=== PATIENT | male | born 1990 | race Caucasian/White ===

== ENCOUNTER 2020-02-22 20:52 | Emergency (ER) | payer OTHER ==
[~2020-02-22] VITALS: Ht 182.9 cm; Wt 109.0 kg
[2020-02-22] MEDS ORDERED: HYDROcodone/APAP 5/325MG 1 TAB TABLET PO ONE (22:00)
--- NOTE | 2020-02-22 22:33 | RAD ---
Exam: Left hand 3 views INDICATION: Left hand pain TECHNIQUE: Frontal, lateral and oblique views of the left hand Comparisons: None FINDINGS: Bone mineralization is normal. No acute or healed fractures. Mild soft tissue swelling at the level of the metacarpals. Joint spaces are well-maintained. IMPRESSION: Soft tissue swelling at the level of the metacarpals without underlying osseous abnormality identified. Electronically signed by: Miriam Posada MD (02/22/2020 10:30 PM) [id number]
--- NOTE | 2020-02-22 22:49 | PHYS DOC ---
Past Medical History Past Medical History: No Pertinent History Past Surgical History: No Surgical History Smoking Status: Never Smoker Alcohol Use: Occasionally General Adult EDM: Chief Complaint: UPPER EXTREMITY INJURY HPI: HPI: Patient is a 29 year old male presents to the emergency department with complaints of left hand pain over the second and third metacarpals after volleyball injury. Patient states that he fell while playing volleyball at approximately 1930 this evening. He reports swelling and pain to his left hand since the injury. He denies any numbness, tingling, or weakness. Patient reports that he drank 2 beers earlier this evening. He denies taking Tylenol or ibuprofen for relief of the pain prior to arrival. Currently rates pain 8 out of 10 on the pain scale, he denies any alleviating factors, the pain is worse with movement and palpation. Review of Systems: Review of Systems: Constitutional: Denies fever or chills. [] Musculoskeletal: Denies back pain; see HPI Integument: Denies rash, or bruising,; reports bruising to his left hand see HPI. [] Neurologic: Denies focal weakness or sensory changes. [] Psychiatric: Denies depression or anxiety. [] Heart Score: Risk Factors: Risk Factors: DM, Current or recent (<one month) smoker, HTN, HLP, family history of CAD, obesity. Risk Scores: Score 0 - 3: 2.5% MACE over next 6 weeks - Discharge Home Score 4 - 6: 20.3% MACE over next 6 weeks - Admit for Clinical Observation Score 7 - 10: 72.7% MACE over next 6 weeks - Early Invasive Strategies Current Medications: Current Medications Medications (Trade) Dose Ordered Sig/[facility] Start Time Stop Time Status Last Admin Dose Admin Acetaminophen/ Hydrocodone Bitart (Lortab 5/325) 1 tab 1X ONCE 02/22/20 22:00 02/22/20 22:01 DC 02/22/20 21:52 1 TAB Allergies: Allergies: Allergies Coded Allergies Type Severity Reaction Last Updated Verified No Known Drug Allergies 02/22/20 No Physical Exam: PE: Constitutional: Well developed, well nourished, no acute distress, non-toxic appearance, obese. [] HENT: Normocephalic, atraumatic, bilateral external ears normal, nose normal. [] Eyes: PERRLA, EOMI, conjunctiva normal, no discharge. [] Neck: Normal range of motion, no stridor. [] Cardiovascular:Heart rate regular rhythm Lungs & Thorax: Respirations even and unlabored, no retractions, no respiratory distress Skin: Warm, dry, no erythema, no rash, no bruising. [] Extremities: Left hand: Tenderness to palpation over the second and third metacarpals without crepitus or obvious deformity, 2+ edema over the lateral aspect of the left hand, no tenderness with palpation of the left snuffbox, no cyanosis, ROM intact Neurologic: Alert and oriented X 3, no focal deficits noted. [] Psychologic: Affect normal, judgement normal, mood normal. [] Current Patient Data: Vital Signs: Vital Signs Date Time Temp Pulse Resp B/P (MAP) Pulse Ox O2 Delivery O2 Flow Rate FiO2 02/22/20 21:08 98.2 70 18 121/77 (92) 97 Room Air 98.2 EKG: EKG: [] Radiology/Procedures: Radiology/Procedures: PROCEDURE: HAND LEFT 3V Exam: Left hand 3 views INDICATION: Left hand pain TECHNIQUE: Frontal, lateral and oblique views of the left hand Comparisons: None FINDINGS: Bone mineralization is normal. No acute or healed fractures. Mild soft tissue swelling at the level of the metacarpals. Joint spaces are well-maintained. IMPRESSION: Soft tissue swelling at the level of the metacarpals without underlying osseous abnormality identified.[] Course & Med Decision Making: Course & Med Decision Making Pertinent Labs and Imaging studies reviewed. (See chart for details) [] Dragon Disclaimer: Dragon Disclaimer: This electronic medical record was generated, in whole or in part, using a voice recognition dictation system. Departure Departure Impression: Primary Impression: Contusion of left hand, initial encounter Disposition: HOME, SELF-CARE Condition: STABLE Referrals: VERN HARVEY MD Patient Instructions: Hand Contusion, [id number] Additional Instructions: You can take Tylenol or ibuprofen as needed for pain. Recommend application of ice, elevation, and rest of affected extremity. Wear the Zaheer wrap that was placed as needed for comfort. Follow-up with Dr. Harvey if symptoms persist, return to the ER if your symptoms worsen. Justicifation of Admission Dx: Justifications for Admission: Justification of Admission Dx: N/A SAYRA LESLIE [employer] Feb 22, 2020 22:49
[2020-02-22 23:06] VITALS: BP 106/55
== END 2020-02-22 23:15 | disposition home or self-care (01) ==
LOC: ER 20:52
DX: S60.222A Contusion of left hand, initial encounter (principal); W18.39XA Other fall on same level, initial encounter; Y93.68 Activity, volleyball (beach) (court); Y92.89 Other specified places as the place of occurrence of the external cause; Y99.8 Other external cause status
CPT/HCPCS: 73130; 99283